=== PATIENT | female | born 1955 | race Caucasian/White ===

== ENCOUNTER → 2017-05-11 | Outpatient (CLI) | payer OTHER | END | disposition home or self-care (01) | LOC: CFH 08:45 | PROVIDERS: ATTEND Internal Medicine | DX: Z13.820 Encounter for screening for osteoporosis (principal); M85.88 Other specified disorders of bone density and structure, other site; N95.8 Other specified menopausal and perimenopausal disorders | CPT/HCPCS: 77080 ==

== ENCOUNTER → 2017-06-01 | Outpatient (CLI) | payer OTHER | END | disposition home or self-care (01) | LOC: CFH 13:30 | PROVIDERS: ATTEND Internal Medicine Cardiovascular Disease | DX: I34.0 Nonrheumatic mitral (valve) insufficiency (principal); R55 Syncope and collapse | CPT/HCPCS: 93306 ==

== ENCOUNTER 2017-06-11 11:20 | Day surgery (SDC) | payer OTHER ==
[2017-06-08 09:17] VITALS: BP 97/71
[2017-06-08 09:25] LABS: HEMATOCRIT 42.1 % (34.6-47.8); HEMOGLOBIN 14.1 g/dL (11.7-16.4); WHITE BLOOD COUNT 3.9 x10^3/uL (3.4-10)
[2017-06-08 09:36] LABS: ASPARTATE AMINO TRANSFERASE 14 U/L (15-37); BLOOD UREA NITROGEN 16 mg/dL (7-18)
[~2017-06-11] VITALS: Ht 172.7 cm; Wt 71.8 kg
[~2017-06-11 11:20] MED LIST: CA/D1TAB7 PO; CHRO1TAB6 PO; CYAN50008 PO; FISH400C3 PO; GLUC-111 PO; GLUC1CAP48 PO; LUTE1CAP3 PO; MULT1TAB60 PO; TURM500C7 PO; UBID1CAP52 PO
[2017-06-11] MEDS ORDERED: FENTANYL PF 100 MCG/2ML ONE (13:09)
[2017-06-11] MEDS ORDERED: LIDOCAINE 2%, 20ML ONE (13:10)
[2017-06-11] MEDS ORDERED: VERAPAMIL 2.5 MG/ML, 2ML ONE (13:10)
[2017-06-11] MEDS ORDERED: TICAGRELOR 90 MG TABLET ONE (13:10)
[2017-06-11] MEDS ORDERED: MIDAZOLAM 1 MG/ML, 5ML ONE (13:10)
[2017-06-11] MEDS ORDERED: HEPARIN 1,000 UNITS/ML, 10ML ONE (13:10)
[2017-06-11] MEDS ORDERED: BIVALIRUDIN 250 MG ONE (13:10)
[2017-06-11] MEDS ORDERED: BUPIVACAINE 0.25% ONE (13:21)
[2017-06-11] MEDS ORDERED: SODIUM CHLORIDE 0.9% 1,000 ML IV SCH (13:43)
== END 2017-06-11 15:40 ==
LOC: CACL 11:20
PROVIDERS: ATTEND Internal Medicine Cardiovascular Disease
DX: I42.9 Cardiomyopathy, unspecified (principal); E78.5 Hyperlipidemia, unspecified; Z88.1 Allergy status to other antibiotic agents; Z88.5 Allergy status to narcotic agent
CPT/HCPCS: 36415; 71020; 80053; 85025; 93458; 99156; C1894; J1644; J2250; J3010; J3490; Q9967; J0583

== ENCOUNTER 2018-10-24 12:32 | Outpatient (CLI) | payer OTHER ==
[~2018-10-24 12:32] MED LIST changes: +LIDOCAINE-MPF 1%, 5ML ONE
== END 2018-10-24 23:59 | disposition home or self-care (01) ==
LOC: RAD 12:32
PROVIDERS: ATTEND Internal Medicine
DX: E04.1 Nontoxic single thyroid nodule (principal)
CPT/HCPCS: 10005; 60300; 76942; 88172; 88173; A4648

== ENCOUNTER 2019-04-24 14:26 | Outpatient (CLI) | payer OTHER ==
[~2019-04-24 14:26] MED LIST changes: -LIDOCAINE-MPF 1%, 5ML ONE
[2019-04-28] MEDS ORDERED: IRBE75TA10 PO (15:51)
[2019-04-28] MEDS ORDERED: CARV3.1212 PO (15:51)
[2019-04-30] MEDS ORDERED: FENTANYL PF 100 MCG/2ML ONE (06:57)
[2019-04-30] MEDS ORDERED: MIDAZOLAM 1 MG/ML, 2ML ONE (06:57)
[2019-04-30] MEDS ORDERED: DEXAMETHASONE 4 MG/ML, 1ML ONE (07:57)
[2019-04-30] MEDS ORDERED: PROPOFOL 10 MG/ML, 20ML ONE (07:57)
[2019-04-30] MEDS ORDERED: GLYCOPYRROLATE 0.2MG/1ML, 5ML ONE (07:57)
[2019-04-30] MEDS ORDERED: SUCCINYLCHOLINE 20 MG/ML, 10ML ONE (07:57)
[2019-04-30] MEDS ORDERED: CEFAZOLIN 1,000 MG ONE (07:57)
[2019-04-30] MEDS ORDERED: ROCURONIUM 10MG/ML,5ML ONE (07:57)
[2019-04-30] MEDS ORDERED: NEOSTIGMINE 1 MG/ML, 10ML ONE (07:57)
[2019-04-30] MEDS ORDERED: ONDANSETRON 2MG/ML, 2ML ONE (07:57)
== END 2019-04-24 23:59 | disposition home or self-care (01) ==
LOC: CFH 14:26
PROVIDERS: ATTEND Internal Medicine Cardiovascular Disease
DX: I34.0 Nonrheumatic mitral (valve) insufficiency (principal); I42.9 Cardiomyopathy, unspecified
CPT/HCPCS: 93306

== ENCOUNTER 2019-04-30 05:57 | Day surgery (SDC) | payer OTHER ==
[2019-04-28 18:13] LABS: ALBUMIN 4.1 g/dL (3.4-5.0); ANION GAP 7 mmol/L (5-15); CALCIUM 9.1 mg/dL (8.5-10.1); CHLORIDE 104 mmol/L (98-107)
[2019-04-28 18:17] LABS: ALANINE AMINOTRANSFERASE 26 U/L (12-78); ALKALINE PHOSPHATASE 56 U/L (45-117); BILIRUBIN,TOTAL 0.7 mg/dL (0.2-1.0); CREATININE 0.82 mg/dL (0.55-1.02); TOTAL PROTEIN 7.4 g/dL (6.4-8.2)
[~2019-04-30] VITALS: Ht 172.7 cm; Wt 70.0 kg
[~2019-04-30 05:57] MED LIST changes: +CARV3.1212 PO; +IRBE75TA10 PO
[2019-04-30] MEDS ORDERED: LACTATED RINGERS 1,000 ML IV SCH (06:06)
[2019-04-30] MEDS ORDERED: BUPIVACAINE/PF 0.25% ONE (06:09)
[2019-04-30 06:14] VITALS: BP 108/77
[2019-04-30] MEDS ORDERED: ONDANSETRON 2MG/ML, 2ML ONE (07:06)
[2019-04-30] MEDS ORDERED: SUCCINYLCHOLINE 20 MG/ML, 10ML ONE (07:06)
[2019-04-30] MEDS ORDERED: ROCURONIUM 10 MG/ML,10ML ONE (07:06)
[2019-04-30] MEDS ORDERED: CEFAZOLIN 1,000 MG ONE (07:06)
[2019-04-30] MEDS ORDERED: PROPOFOL 10 MG/ML, 20ML ONE (07:06)
[2019-04-30] MEDS ORDERED: DEXAMETHASONE 4 MG/ML, 1ML ONE (07:06)
[2019-04-30] MEDS ORDERED: DIAZEPAM 5 MG/ML, 2ML IVPush PRN (07:30)
[2019-04-30] MEDS ORDERED: PROMETHAZINE 25 MG/ML, 1ML IV PRN (07:30)
[2019-04-30] MEDS ORDERED: OXYcodone 5 MG/5 ML ORAL.SOL UDC PO PRN (07:30)
[2019-04-30] MEDS ORDERED: KETOROLAC 30 MG/1 ML IV PRN (07:30)
[2019-04-30] MEDS ORDERED: MEPERIDINE/PF 25MG/0.5ML IVPush PRN (07:30)
[2019-04-30] MEDS ORDERED: hydrALAzine 20 MG/ML, 1ML IV PRN (07:30)
[2019-04-30] MEDS ORDERED: FENTANYL PF 100 MCG/2ML IV PRN (07:30)
[2019-04-30] MEDS ORDERED: LABETALOL 5MG/ML, 20ML IV PRN (07:30)
[2019-04-30] MEDS ORDERED: ACETAMINOPHEN 325 MG TABLET PO PRN (07:30)
[2019-04-30] MEDS ORDERED: HYDROmorphone 2 MG/ML, 1ML IVPush PRN (07:30)
[2019-04-30] MEDS ORDERED: ALBUTEROL SULFATE 2.5 MG/3 ML NPPB PRN (07:30)
[2019-04-30] MEDS ORDERED: ACETAMINOPHEN 650 MG/20.3 ML UDC ONE (08:38)
[2019-04-30] MEDS ORDERED: FENTANYL PF 100 MCG/2ML ONE (08:38)
== END 2019-04-30 12:10 | disposition home or self-care (01) ==
LOC: OUT 05:57
PROVIDERS: ATTEND Surgery
DX: E04.1 Nontoxic single thyroid nodule (principal); I42.9 Cardiomyopathy, unspecified; E03.9 Hypothyroidism, unspecified; Z79.899 Other long term (current) drug therapy; Z88.2 Allergy status to sulfonamides; Z88.8 Allergy status to other drugs, medicaments and biological substances; Z98.890 Other specified postprocedural states; Z80.7 Family history of other malignant neoplasms of lymphoid, hematopoietic and related tissues; Z82.3 Family history of stroke; Z82.5 Family history of asthma and other chronic lower respiratory diseases; Z72.89 Other problems related to lifestyle
CPT/HCPCS: 36415; 60220; 80053; 84432; 86800; 88307; 93005; C1760; J0330; J0690; J1100; J2250; J2405; J2704; J2710; J3010; J3490; J7120

== ENCOUNTER → 2020-03-31 | Outpatient (CLI) | payer MEDICARE ==
[~2020-03-31] MED LIST changes: -IRBE75TA10 PO; +IRBE75TA6 PO; +MULT-449 PO; -MULT1TAB60 PO
== END | disposition home or self-care (01) ==
LOC: CVU 07:38
PROVIDERS: ATTEND Internal Medicine Cardiovascular Disease
DX: I34.0 Nonrheumatic mitral (valve) insufficiency (principal); I42.9 Cardiomyopathy, unspecified
CPT/HCPCS: 93306